=== PATIENT | female | born 1950 ===

== ENCOUNTER 2021-10-29 19:04 | Outpatient (REF) | payer MEDICARE, SELFPAY ==
[2021-10-29 14:11] LABS: ALT 27 U/L (14-59); AST 21 U/L (15-37); Alkaline Phosphatase 132 U/L (46-116); Anion Gap 10.1 mmol/L (3-11); BUN 11 mg/dL (7-18); Bilirubin, Total 1.4 mg/dL (0.2-1.0); CO2 27.9 mmol/L (21.0-32.0); Calcium 9.8 mg/dL (8.5-10.1); Chloride 104 mmol/L (98-107); Estimated GFR 55.14 (mL/min/1.73m2); Glucose 105 mg/dL (74-106); Potassium 4.5 mmol/L (3.5-5.1); Sodium 142 mmol/L (136-145)
[2021-10-30 14:11] LABS: COVID-19 RT-PCR UVMMC Result Negative (Negative)
== END 2021-10-29 19:05 | disposition home or self-care (01) ==
LOC: LBN 19:04
PROVIDERS: PCP Internal Medicine; Visit Provider Physician Assistant Medical
DX: J34.89 Other specified disorders of nose and nasal sinuses (principal); Z20.822 Contact with and (suspected) exposure to COVID-19
CPT/HCPCS: 80053; U0003; U0005